=== PATIENT | female | born 1950 | race American Indian/Alaskan Native ===

== ENCOUNTER 2018-03-22 09:00 | Emergency (ER) | payer MEDICARE ==
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
--- NOTE | 2018-03-22 12:19 | XRay Report ---
LUMBOSACRAL SPINE, 3 VIEWS: History: Low back pain Findings: Mild osteopenia is suspected. The vertebral bodies, disk spaces and posterior elements are intact. No compression deformity or malalignment. There is moderate disc space narrowing at L1-2 and L5-S1. Moderate diffuse facet arthropathy is also identified which is most pronounced at L3-4. The sacrum and SI joints are grossly intact. Impression: Lumbar spondylosis. Mild osteopenia.
--- NOTE | 2018-03-22 12:20 | XRay Report ---
CERVICAL SPINE, 3 views: History: Neck pain. Findings: Mild osteopenia is suspected. The vertebral bodies, disk spaces, posterior elements and prevertebral soft tissues are intact. The dens is intact. No acute fracture or malalignment is identified. Minimal disc space narrowing and marginal spurring is noted at C5-6 and C6-7. The facet joints are unremarkable. Impression: Minimal cervical spondylosis. No acute process. Mild osteopenia.
[2018-03-22 14:52] VITALS: BP 130/80
== END 2018-03-22 14:55 | disposition home or self-care (01) ==
LOC: ED 09:00
DX: S39.012A Strain of muscle, fascia and tendon of lower back, initial encounter (principal); S16.1XXA Strain of muscle, fascia and tendon at neck level, initial encounter; I10 Essential (primary) hypertension; E11.9 Type 2 diabetes mellitus without complications; Z90.710 Acquired absence of both cervix and uterus; Z79.899 Other long term (current) drug therapy; V49.9XXA Car occupant (driver) (passenger) injured in unspecified traffic accident, initial encounter; Y93.89 Activity, other specified; Y99.8 Other external cause status; Y92.410 Unspecified street and highway as the place of occurrence of the external cause
CPT/HCPCS: 72040; 72100; 99283